=== PATIENT | female | born 1985 | race Caucasian/White ===

== ENCOUNTER → 2024-12-10 | Outpatient (CLI) | payer BC, SELFPAY ==
--- NOTE | 2024-12-10 10:30 | XR_ITS ---
Examination: Ultrasound soft tissue right flank TECHNIQUE: Sonographic images soft tissue right flank Exam date and time: December 10, 2024 1004 hours INDICATIONS: Palpable lump right flank beginning one week ago FINDINGS: No cystic or solid soft tissue mass noted IMPRESSION: No cystic or solid soft tissue mass noted, consider CT abdomen pelvis post intravenous contrast follow-up
== END | disposition home or self-care (01) ==
PROVIDERS: PCP Registered Nurse; Referring Provider Registered Nurse; Visit Provider Registered Nurse
DX: R22.2 Localized swelling, mass and lump, trunk (principal)
CPT/HCPCS: 76705

== ENCOUNTER → 2024-12-21 | Outpatient (CLI) | payer BC, SELFPAY ==
[2024-12-20 17:48] LABS: HCG Qualitative,Urine Negative
--- NOTE | 2024-12-21 16:00 | XR_ITS ---
Examination: CT abdomen and pelvis without contrast. Coronal 3-D reconstructions. Sagittal 2-D reconstructions. Date and time of exam:December 21, 2024 1600 hours INDICATIONS: Right flank pain and swelling beginning 2 weeks ago CTDI: vol (mGy): 10.4 DLP: (mGycm): 521 Technique: Axial images of the abdomen have been obtained, 3 mm slice thickness Intravenous contrast material has not been administered. Low dose protocols were performed. One or more of the following dose reduction techniques were used; automated exposure control, adjustment of the mA and/or KV according to patient size, use of iterative reconstruction technique. Findings: No focal liver or splenic lesion No gallstones No pancreatic or adrenal mass No renal or ureteral calculi, no hydronephrosis 8mm mass at the upper margin right kidney which may represent a cyst Aorta normal size 15 mm fat-containing umbilical hernia Normal appendix Hypodense left adnexal mass 24 mm Mild free fluid in the pelvis Anteverted uterus Urinary bladder intact IMPRESSION: No renal or ureteral calculi, no hydronephrosis Recommend renal sonography follow-up to assess 8 mm mass upper pole right kidney Small fat-containing umbilical hernia 24 mm hypodense left adnexal mass, recommend pelvic sonography follow-up
== END | disposition home or self-care (01) ==
PROVIDERS: Referring Provider Registered Nurse; Visit Provider Registered Nurse
DX: K42.9 Umbilical hernia without obstruction or gangrene (principal); N28.89 Other specified disorders of kidney and ureter; E27.8 Other specified disorders of adrenal gland; Z32.00 Encounter for pregnancy test, result unknown
CPT/HCPCS: 74176; 81025

== ENCOUNTER → 2025-01-02 | Outpatient (CLI) | payer BC, SELFPAY ==
--- NOTE | 2025-01-02 13:30 | XR_ITS ---
Examination: Abdomen sonogram, complete Date and time of exam: 2024 1346 hours INDICATIONS: CT examination December 21, 2024 8 mm mass upper pole right kidney. Technique: Multiple real-time grayscale transabdominal sonographic images of the abdomen have been obtained. Findings: Normal gallbladder Normal common bile duct 0.3 cm Pancreatic head 1.3 cm Aorta not enlarged Liver 18 cm fatty infiltration smooth contour no focal liver lesions Normal hepatopedal portal venous flow Patent IVC Right kidney 10.3 x 5.2 x 5.7 cm cortex 1.6 cm Cyst with internal echoes in the upper pole 12 x 10 x 10 mm Left kidney 11.4 x 5.1 x 7.8 cm cortex 1.2 cm Spleen 9.8 cm IMPRESSION: Probable cyst with internal echoes upper pole right kidney 12 x 10 x 10 mm, recommend 6 month follow-up renal sonography
--- NOTE | 2025-01-02 14:00 | XR_ITS ---
Examination: Transvaginal ultrasound of the pelvis, complete Technique: Transvaginal sonographic images pelvis performed using mina scale imaging Exam date and time: January 02, 2025 1404 hours INDICATIONS: CT examination December 21, 2024 24 mm hypodense left adnexal mass FINDINGS: Uterus 9.7 cm small cervical cysts endometrial stripe 0.6 cm no uterine mass Right ovary 2.1 cm arterial flow Left ovary 3.9 cm arterial flow 16 x 15 x 13 mm cyst IMPRESSION: Small benign left ovarian cyst, 16 x 15 x 13 mm
== END | disposition home or self-care (01) ==
LOC: CDIM 13:20
PROVIDERS: PCP Family Medicine; Referring Provider Registered Nurse; Visit Provider Registered Nurse
DX: N28.89 Other specified disorders of kidney and ureter (principal); N83.202 Unspecified ovarian cyst, left side
CPT/HCPCS: 76700; 76830

== ENCOUNTER → 2025-03-25 | Outpatient (CLI) | payer BC, SELFPAY ==
--- NOTE | 2025-03-25 08:15 | XR_ITS ---
Examination: Screening digital mammography, bilateral Computer aided detection 3-D breast Tomosynthesis, bilateral Date and time of exam: March 25, 2025 0805 hours Indication: Screening Technique: Nonmagnified MLO, CC views of the breasts to been obtained, reconstructed from 3-D Tomosynthesis images. R2 computer aided detection program utilized for evaluation of suspicious masses and/or abnormal calcifications. 3-D Tomosynthesis images obtained. Findings: The breasts are heterogeneously dense, which may obscure small masses Benign calcifications. No suspicious masses Impression: BI-RADS category II: Benign Findings. Recommend 1 year follow-up mammogram.
[2025-03-25 09:00] LABS: Basophils # (Auto) 0.1 Thou/mm3 (0.0-0.2); Basophils % (Auto) 1 % (0-2.5); Eosinophils # (Auto) 0.2 Thou/mm3 (0.0-0.5); Eosinophils % (Auto) 3 % (0-10); Hematocrit 39.4 % (36.0-46.0); Hemoglobin 13.6 g/dL (12.0-16.0); Immature Granulocytes % (Auto) 0 % (0-0); Immature Granulocytes Auto 0.01 Thou/mm3 (0.00-0.00); Lymphocytes # (Auto) 2.2 Thou/mm3 (1.0-4.8); Lymphocytes % (Auto) 39 % (10-50); Mean Corpuscular HGB Conc 34.5 g/dl (31.0-37.0); Mean Corpuscular Hemoglobin 29.5 pg (25.0-35.0); Mean Corpuscular Volume 86 fL (80-100); Monocytes # (Auto) 0.4 Thou/mm3 (0.0-0.8); Monocytes % (Auto) 7 % (0-12); Neutrophils # (Auto) 2.7 Thou/mm3 (1.8-7.7); Neutrophils % (Auto) 49 % (37-80); Nucleated Red Blood Cell % 0 /100 WBC (0); Platelet Count 247 Thou/mm3 (140-440); RDW Standard Deviation 40.6 fL (36.4-46.3); Red Blood Count 4.61 Miln/mm3 (4.00-5.20); White Blood Count 5.6 Thou/mm3 (3.6-11.0)
[2025-03-25 09:22] LABS: Sed Rate (ESR) 5 mm/hr (0-20)
[2025-03-25 09:44] LABS: Alanine Aminotransferase < 7 U/L (10-49); Albumin, Serum 4.7 gm/dL (3.5-5.0); Alkaline Phosphatase 74 U/L (46-116); Anion Gap 10 (7-16); Aspartate Amino Transferase 12 U/L (0-34); BUN/Creatinine Ratio 13 Ratio (12-20); Bilirubin,Total 0.6 mg/dL (0.3-1.2); Blood Urea Nitrogen 12 mg/dL (9-23); C-Reactive Protein < 0.5 mg/dL (0.0-0.9); Calcium 9.3 mg/dL (8.3-10.6); Calcium (Corrected) 9.3 mg/dL (8.5-10.1); Carbon Dioxide 26.9 mMol/L (20.0-31.0); Chloride 104 mMol/L (98-107); Creatinine (Component) 0.9 mg/dL (0.6-1.3); Globulin 2.4 gm/dL (2.3-3.5); Glucose 98 mg/dL (74-106); Osmolality,Calculated 280 (275-295); Potassium 3.9 mMol/L (3.4-5.1); Sodium 141 mMol/L (136-145); Total Protein 7.1 gm/dL (5.7-8.2); eGFR > 60 See Note
== END | disposition home or self-care (01) ==
PROVIDERS: Referring Provider Registered Nurse; Visit Provider Registered Nurse
DX: Z12.31 Encounter for screening mammogram for malignant neoplasm of breast (principal); R92.323 Mammographic fibroglandular density, bilateral breasts; R92.1 Mammographic calcification found on diagnostic imaging of breast; R22.9 Localized swelling, mass and lump, unspecified; E78.89 Other lipoprotein metabolism disorders; R53.82 Chronic fatigue, unspecified
CPT/HCPCS: 36415; 77063; 77067; 80053; 85025; 85652; 86140